=== PATIENT | male | born 2000 | race Caucasian/White ===

== ENCOUNTER 2020-05-13 14:32 | Outpatient (CLI) | payer OTHER, SELFPAY ==
[2020-05-13 15:00] LABS: Hemoglobin 15.7 g/dL (14.0-18.0); Mean Corpuscular HGB Conc 34.1 g/dl (32-36); Mean Corpuscular Hemoglobin 30.6 pg (26-34); Mean Corpuscular Volume 89.7 fl (80-100); Mean Platelet Volume 9.7 fl (7.4-10.4); Platelet Count Result 256 k/mm3 (150-375); Red Blood Count 5.13 M/mm3 (4.6-6.20); Red Cell Distribution Width 12.1 % (11.5-14.5); White Blood Count 6.9 K/mm3 (4.5-10.0)
[2020-05-13 15:10] LABS: Alanine Aminotransferase 21 U/L (4-50); Albumin Level 4.7 g/dL (3.5-5.1); Alkaline Phosphatase 64 U/L (38-126); Anion Gap 5 mmol/L (8-16); Aspartate Amino Transferase 21 U/L (17-59); Bilirubin,Total 0.5 mg/dL (0.2-1.3); Blood Urea Nitrogen 14 mg/dL (9-20); Calcium 9.7 mg/dL (8.4-10.2); Carbon Dioxide 33 mmol/L (22-30); Chloride 102 mmol/L (98-107); Cholesterol 143 mg/dL (0-200); Estimated Glomerular Filt Rate > 60; Glucose 106 mg/dL (75-110); HDL Direct 60 mg/dL; Potassium 4.3 mmol/L (3.4-5.0); Sodium 140 mmol/L (137-145); Triglycerides 65 mg/dL (<150)
[2020-05-13 15:13] LABS: Add Urine Microscopic? YES; Appearance Urine Cloudy (Clear); Bacteria Urine Trace /hpf; Bilirubin Urine Negative (Negative); Blood Urine Negative (Negative); Color Urine Yellow (Yellow); Glucose Urine UA Negative (Negative); Ketones Urine Negative (Negative); Leukocyte Esterase Ur Negative LEU/UL (NEGATIVE); Mucus Urine Rare /lpf; Nitrate Urine Negative (Negative); Protein Urine Negative (Negative); RBC Urine 0-2 /hpf (0-2); Specific Grav Ur 1.018 (1.001-1.035); Urobilinogen Urine Negative mg/dL (<2.0); WBC Urine 0-3 /hpf (0-3)
[2020-05-13 15:21] LABS: LDL Cholesterol Direct 62 mg/dL
[2020-05-13 16:16] LABS: Folic Acid 6.6 ng/mL (2.76->20)
== END 2020-05-13 14:33 | disposition home or self-care (01) ==
LOC: ANHLAB 14:34
PROVIDERS: PCP Physician Assistant; Visit Provider Physician Assistant
DX: R10.9 Unspecified abdominal pain (principal); Z00.00 Encounter for general adult medical examination without abnormal findings
CPT/HCPCS: 36415; 80053; 80061; 81001; 82607; 82746; 84443; 85027; 87086

== ENCOUNTER 2020-05-17 12:35 | Outpatient (CLI) | payer OTHER, SELFPAY ==
--- NOTE | ~2020-05-17 | CT_ITS ---
EXAMINATION: CT abdomen pelvis wo con DATE: 05/17/2020 12:58 INDICATION: Unspecified right-sided abdominal pain. TECHNIQUE: Computed tomography (CT) of the abdomen and pelvis was performed without intravenous contr ast. Automated exposure control and iterative reconstruction technique were employed. The dose-length product was 406.65 mGy-cm. COMPARISON: None FINDINGS: Lung bases are clear. Heart size is normal. No pericardial or pleural effusion. Liver, gallbladder, s pleen, pancreas, bilateral adrenal glands and kidneys are normal. Bowels including the appendix are n ormal. Bladder is normal. No free intraperitoneal gas or fluid. No pathologically enlarged abdominal or pelvic lymphadenopathy. Tiny fat-containing umbilical hernia. L5 is partially sacralized on the le ft. IMPRESSION: 1. No acute intra-abdominal/pelvic process. Normal appendix. Reviewed, dictated and finalized at location B. [employer]
== END 2020-05-17 12:36 | disposition home or self-care (01) ==
PROVIDERS: PCP Physician Assistant; Visit Provider Physician Assistant
DX: R10.9 Unspecified abdominal pain (principal)
CPT/HCPCS: 74176

== ENCOUNTER 2020-06-06 11:15 | Outpatient (RCR) | payer OTHER, SELFPAY ==
--- NOTE | 2020-05-28 10:15 | PTOPEVAL ---
Thank you for referring Miah Ochoa to [facility].? The patient is scheduled to be seen for therapy? 2 x/week for 3 weeks. Please review, sign, date and return this plan of care DORA. I agree with and certify that the following plan of care is medically necessary. Referring Physician Date Attending Provider: Prasad Dietrich PA-C Referring Provider: Prasad Dietrich PA-C Physical Therapy Evaluation Diagnosis abdominal pain Onset 5 wks Cause unknown Additional Evaluation Detail resistance training on machine and dumbbells 5x/wk focusing on each body region Subjective Information C/o stabbing pain of right Query Text:As Reported By Patient/ lower flank that last up to 15 Family minutes. He will get the pain with sitting or static standing. Occasionally will get the pain with walking. Denies problems with lifting or carrying. Denies the pain with exercise. Denies pain at night. Does not perform a stretching program. Diagnostic Tests Other Tests For This Problem Yes: CT scan- normal Pain Assessment Self Report Pain Assessment Lateral Flank Reported Pain Level 4 Pain Description Sharp Pain Frequency Acute,Intermittent Lowest Pain Intensity 0 Greatest Pain Intensity 8 Pain Score Pain Score 4: Self Report Cervical and Lumbar ROM Lumbar Flexion Active Floor Query Text:Hands to: Lateral Flexion inf lateral knee region Query Text:Active Hands to: Lumbar ROM WNL Lumbar Comments pulling on right side with left lateral flex Lower Extremity Range of Motion General Lower Extremity Range of Motion Reason Not Measured WNL/Left,WNL/Right Lower Extremity Muscle Strength Testing General Lower Extremity Strength Reason Not Measured WNL/Left,WNL/Right Gross Lower Extremity Strength right hip abd: 4/5 left hip abd: 4+/5 Muscle Length Testing Muscle Length Testing Two-Joint Hip Flexor Shortened Muscles Short (R) Iliopsoas,Short (L) Iliopsoas Piriformis w/Hip Flexion >90 Degrees (R) WFL,(L) WFL Palpation Assessment Palpation severe tenderness of right iliopsoas, internal/external obliques no tenderness of glut region, QL or paraspinals.
--- NOTE | 2020-06-11 09:19 | PCPTNOTE ---
Admitting Provider: Attending Provider: Prasad Dietrich PA-C Patient:Miah Ochoa Date of :2000 Discharge Note Patient called on 06/10/20 to indicate he was feeling better and did not feel he needed to return to therapy. Patient?s initial visit was on 05/28/2020 09:00 and he had a total of 3 visits. The goals have been partially met at this time. Thank you for referring this patient to [facility]. Please review, sign, date and return this discharge summary DORA. I have been updated about the patient's current status and I agree with discharge from the above service at this time. Referring Physician Date
== END 2020-06-11 10:32 | disposition home or self-care (01) ==
LOC: ANHPT 11:15
PROVIDERS: PCP Physician Assistant; Referring Provider Physician Assistant; Visit Provider Physician Assistant
DX: R10.9 Unspecified abdominal pain (principal)
CPT/HCPCS: 97110; 97140; 97161

== ENCOUNTER 2020-06-25 14:59 | Outpatient (CLI) | payer OTHER, SELFPAY | END 2020-06-25 15:00 | disposition home or self-care (01) | LOC: ANHCOVIDVC 14:59 | PROVIDERS: PCP Physician Assistant | DX: Z23 Encounter for immunization (principal) | CPT/HCPCS: 0001A; 91300 ==

== ENCOUNTER 2020-07-16 14:55 | Outpatient (CLI) | payer OTHER, SELFPAY | END 2020-07-16 14:56 | disposition home or self-care (01) | LOC: ANHCOVIDVC 14:55 | PROVIDERS: PCP Physician Assistant | DX: Z23 Encounter for immunization (principal) | CPT/HCPCS: 0002A; 91300 ==

== ENCOUNTER 2022-12-21 17:58 | Emergency (ER) | payer OTHER, SELFPAY ==
--- NOTE | 2022-12-21 18:01 | ED.EAR ---
HPI - Ear Problem General Chief complaint: Ear Stated complaint: Ear clogged Time Seen by Provider: 12/21/22 18:00 Source: patient Mode of arrival: ambulatory Limitations: no limitations History of Present Illness HPI Narrative: Miah is a 22-year-old male patient presenting to clinic today with complaints of clogged right ear. He reports that he has had decreased hearing in the ear over the last few days. Denies any pain currently Related Data Allergies Allergy/AdvReac Type Severity Reaction Status Date / Time No Known Allergies Allergy Unverified 12/21/22 18:05 Review of Systems Review of Systems: Pertinent positives per HPI. Patient denies any fever, chills, rash, headache, visual changes, dizziness, cough, runny nose, sore throat, shortness of breath, chest pain, palpitations, nausea, vomiting, diarrhea, constipation, abdominal pain, or any urinary issues. [facility] Family History Family History Sibling Asthma Grandparent Heart disease Hypertension Social History Social History Smoking status: Never smoker Alcohol intake: current Substance use: never Comments At the time of my signature, I reviewed and agree with the nursing past medical, surgical, social, and family history. There is no relevant family history pertinent to the patient complaint. Exam Narrative: General: Well-developed, well nourished, in no apparent distress Head: Normocephalic, atraumatic Eyes: Pupils equally round and reactive to light bilaterally, EOM intact, sclera and conjunctive clear, no discharge, lids normal Ears: Left tMs intact and clear, right ear canal with cerumen impaction, ear irrigation was performed and cerumen impaction was removed successfully, right TM intact, bulging, red, left ear canal clear, no drainage, grossly hearing normal. Nose: Nares patent, no discharge, no inflammation, no sinus tenderness. Mouth: Oropharynx without lesions or masses, good dentition, MMM. Neck: Supple, trachea midline, no enlargement of anterior or posterior cervical nodes, no thyroid masses or goiter palpable. Cardio: Regular rate and rhythm, s1 and s2 normal, no murmur appreciated. Resp: Clear to auscultation bilaterally anteriorly and posteriorly, no rhonchi, rales, wheezing or rubs Course Course Emergency Course: Portions of this record may have been created with voice recognition software. Level of Care: Express Care Visit Vital Signs Vital signs: Vital signs reviewed Procedures Ear Wax Removal Right Ear: Ear Wax Removal Date: 12/21/22 Cerumenolytic Used: other (Debrox) Results: Re-examined: cerumen removed completely TM Examination: TM(s) erythematous (bulging, red) Ear Canal Exam: atraumatic Patient Tolerated Procedure: well and no complications Complications: no problems Technique: ear canal irrigated Medical Decision Making MDM Narrative Medical decision making narrative: At the time of visit patient is resting comfortably on the exam table. I suspect patient has right otitis media. Cerumen impaction was removed in the clinic using ear irrigation successfully. Supportive measures were discussed with the patient he voiced understanding discharge instructions and agrees to treatment plan. Prescription for amoxicillin was sent to the pharmacy. Differential Diagnosis Differential Diagnosis: Otitis media, otitis externa eustachian tube dysfunction, cerumen impaction Discharge Plan Discharge Clinical Impression: Impacted cerumen, right ear, Acute right otitis media Patient Disposition: Home, Self-Care Condition: Stable Instructions: Antibiotic Form, Carbamide Peroxide (Into the ear), Ear Infection (ED) Additional Instructions: Right ear was irrigated in the clinic today. Take any prescribed medications only as directed,
[2022-12-21 18:06] VITALS: BP 127/86; PULSE 96; RESP 16; TEMP 37; O2SAT 100
[2022-12-21] MEDS: CARBAMIDE PEROXIDE 6.5% OT SOLN 15 ML BTL 5 DROP RIGHT EAR (18:25)
== END 2022-12-21 19:05 | disposition home or self-care (01) ==
PROVIDERS: Emergency Provider Nurse Practitioner Family
DX: H66.91 Otitis media, unspecified, right ear (principal); H61.21 Impacted cerumen, right ear
CPT/HCPCS: 69209; 99213; A9270; G0463